=== PATIENT | female | born 2000 | race Hispanic/Latino ===

== ENCOUNTER 2021-11-02 12:10 | Day surgery (SDC) | payer OTHER | END 2021-11-02 14:15 | disposition home or self-care (01) | LOC: CSHLD/OP 12:10 | PROVIDERS: ATTEND Family Medicine | DX: O36.8120 Decreased fetal movements, second trimester, not applicable or unspecified (principal); Z3A.27 27 weeks gestation of pregnancy | CPT/HCPCS: 76815; 99282 ==

== ENCOUNTER 2022-01-07 22:27 | Day surgery (SDC) | payer OTHER ==
[2022-01-07 22:51] VITALS: BMI 24.8
[2022-01-08] MEDS ORDERED: hydrALAZINE 20 MG/ML VIAL SLOW IVP PRN (01:45)
== END 2022-01-08 02:45 | disposition home or self-care (01) ==
LOC: CSHLD/OP 22:27
PROVIDERS: ATTEND Family Medicine
DX: Z03.79 Encounter for other suspected maternal and fetal conditions ruled out (principal); Z87.440 Personal history of urinary (tract) infections
CPT/HCPCS: 99283

== ENCOUNTER 2022-01-28 15:36 | Inpatient (IN) | payer OTHER ==
[2022-01-28 16:27] VITALS: BMI 25.4
[2022-01-28] MEDS ORDERED: Methylergonovine 0.2 MG/ML VIAL IM PRN ×2 (16:32→19:55)
[2022-01-28] MEDS ORDERED: Carboprost 250 MCG/ML AMP IM PRN (16:32)
[2022-01-28] MEDS ORDERED: Lidocaine 1% (PF) 30 ML VIAL SC PRN (16:32)
[2022-01-28] MEDS ORDERED: Diphenoxylate HCl/Atropine Tablet PO PRN (16:32)
[2022-01-28] MEDS ORDERED: Misoprostol 200 MCG TAB PR PRN (16:32)
[2022-01-28] MEDS ORDERED: hydrALAZINE 20 MG/ML VIAL SLOW IVP PRN ×2 (16:32→19:55)
[2022-01-28] MEDS ORDERED: Ibuprofen 800 MG TAB PO PRN (16:32)
[2022-01-28] MEDS ORDERED: Ondansetron PF 4 MG/2 ML Vial IVP PRN ×3 (16:32→19:55)
[2022-01-28] MEDS ORDERED: Promethazine HCl 25 MG/ML VIAL IM PRN ×3 (16:32→19:55)
[2022-01-28] MEDS ORDERED: Fentanyl 2 mcg/Bup 0.1% Cadd 100 ML ONE (16:36)
[2022-01-28 16:45] LABS: Hemoglobin 11.8 g/dL (12.0-15.5); Mean Corpuscular HGB CONC 34.4 g/dL (32.0-36.0); Mean Corpuscular Hemoglobin 29.4 pg (27.0-33.0); Mean Corpuscular Volume 85.3 fl (81.6-98.3); Mean Platelet Volume 11.8 fl (7.4-10.4); Platelet Count 202 10x3/uL (150-450); Red Blood Cell (RBC) Count 4.02 10x6/uL (3.90-5.03); White Blood Cell (WBC) Count 13.5 10x3/uL (3.5-10.5)
[2022-01-28] MEDS ORDERED: NS w/ Oxytocin 30 units 500 ML IV SCH ×2 (16:45→19:55)
[2022-01-28] MEDS ORDERED: Lactated Ringer's 1,000 ML IV SCH (16:45)
[2022-01-28 17:24] LABS: Hep B Surf Ag Non-Reactive S/CO (NonReactive); Syphilis Antibody Nonreactive (Nonreactive); Syphilis Antibody Index 0.03 S/CO (<1.00 Non-Reactive)
[2022-01-28 17:26] LABS: HBSAg Index 0.19 S/CO (0-0.99)
[2022-01-28 17:33] LABS: SARS-CoV-2 NAA Rapid Test Not Detected (NotDetected)
[2022-01-28] MEDS ORDERED: ePHEDrine Sulfate 50 MG/10 ML VIAL SLOW IVP PRN (17:36)
[2022-01-28] MEDS ORDERED: diphenhydrAMINE 50 MG/ML VIAL IVP PRN (17:36)
[2022-01-28] MEDS ORDERED: Acetaminophen 325 MG TAB PO PRN (17:36)
[2022-01-28] MEDS ORDERED: Moisturizing Cream (Eucerin) 113 GM JAR TOP PRN (17:36)
[2022-01-28] MEDS ORDERED: Naloxone HCl 0.4 mg/ml Vial IVP PRN ×2 (17:36)
[2022-01-28] MEDS ORDERED: Lactated Ringer's 500 ML IV PRN (17:44)
[2022-01-28] MEDS ORDERED: Communication Order-Pharmacy FS SCH (17:45)
[2022-01-28] MEDS ORDERED: Fentanyl 2 mcg/Bupivacaine 0.1% Cassette 100 ML EPIDURAL SCH (17:45)
[2022-01-28] MEDS ORDERED: Boostrix 0.5 ML (Tdap) VIAL IM ONE (19:55)
[2022-01-28] MEDS ORDERED: Milk Of Magnesia 30 ML UDCUP PO PRN (19:55)
[2022-01-28] MEDS ORDERED: HYDROcodone/Acetaminophen 5/325 mg Tablet PO PRN (19:55)
[2022-01-28] MEDS ORDERED: Bisacodyl 10 MG SUPP PR PRN (19:55)
[2022-01-28] MEDS ORDERED: Lanolin Ointment 7 GM TUBE TOP PRN (19:55)
[2022-01-28] MEDS ORDERED: diphenhydrAMINE 25 MG CAP PO PRN (19:55)
[2022-01-28] MEDS: Docusate 100 MG CAP PO SCH (21:38)
[2022-01-29] MEDS: Ibuprofen 800 MG TAB PO SCH ×3 (05:08→19:55)
[2022-01-29] MEDS: Ferrous Sulfate 325 MG TAB PO SCH ×2 (08:02→15:50)
[2022-01-29] MEDS: Prenatal Vitamin 1 TAB PO SCH (09:19)
[2022-01-29] MEDS: Docusate 100 MG CAP PO SCH ×2 (09:19→19:55)
[2022-01-29] MEDS: HYDROcodone/Acetaminophen 5/325 mg Tablet PO PRN (18:04)
[2022-01-30] MEDS: Ibuprofen 800 MG TAB PO SCH ×2 (04:58→11:47)
[2022-01-30] MEDS: Ferrous Sulfate 325 MG TAB PO SCH (07:18)
[2022-01-30] MEDS: Prenatal Vitamin 1 TAB PO SCH (09:04)
[2022-01-30] MEDS: Docusate 100 MG CAP PO SCH (09:04)
[2022-01-30] MEDS: HYDROcodone/Acetaminophen 5/325 mg Tablet PO PRN (09:08)
[2022-01-30 09:10] VITALS: BP 137/81; TEMP 97.6
== END 2022-01-30 13:30 | disposition home or self-care (01) | DRG 807 ==
LOC: CSHLD/OP 15:36 → CSHLD 17:07 → CSHPP 20:40
PROVIDERS: ADMIT Family Medicine; ATTEND Family Medicine
PROC: 10E0XZZ Delivery of Products of Conception, External Approach (ICD-10-PCS; principal; 2022-01-28)
PROC: 10907ZC Drainage of Amniotic Fluid, Therapeutic from Products of Conception, Via Natural or Artificial Opening (ICD-10-PCS; 2022-01-28)
DX: O80 Encounter for full-term uncomplicated delivery (principal); Z37.0 Single live birth; Z3A.38 38 weeks gestation of pregnancy; Z20.822 Contact with and (suspected) exposure to COVID-19
CPT/HCPCS: 51701; 85027; 86780; 86850; 86900; 86901; 87340; 99285; U0002